=== PATIENT | male | born 1955 | race African-American/Black ===

== ENCOUNTER 2019-01-04 14:57 | Emergency (ER) | payer MEDICARE ==
[~2019-01-04] VITALS: Ht 170.2 cm; Wt 122.5 kg
[2019-01-04 15:43] LABS: BASO % 0 % (0-3); EOS % 0 % (0-3); HEMOGLOBIN 12.5 g/dL (13.0-17.5); LYMPH # 1.6 x10^3/uL (1.0-4.8); LYMPH % 24 % (24-48); MEAN CORPUSCULAR HEMOGLOBIN 31 pg (25-35); MEAN CORPUSCULAR HGB CONC 33 g/dL (31-37); MEAN CORPUSCULAR VOLUME 94 fL (79-100); MONO % 14 % (0-9); NEUT # 4.3 x10^3uL (1.8-7.7); NEUT % 62 % (31-73); PLATELET COUNT 197 x10^3/uL (140-400); RED BLOOD COUNT 4.05 x10^6/uL (4.30-5.70); RED CELL DISTRIBUTION WIDTH 13.9 % (11.5-14.5); WHITE BLOOD COUNT 6.9 x10^3/uL (4.0-11.0)
[2019-01-04 15:46] LABS: BILIRUBIN,URINE NEGATIVE (NEG); CLARITY,URINE CLEAR; COLOR,URINE YELLOW; NITRITE,URINE NEGATIVE (NEG); PROTEIN,URINE NEGATIVE (NEG-TRACE); UROBILINOGEN,URINE 0.2 mg/dL (0.2 mg/dL)
[2019-01-04 15:52] LABS: CALCIUM 8.9 mg/dL (8.5-10.1); CREATININE 1.2 mg/dL (0.7-1.3); GFR 73.8; POTASSIUM 4.2 mmol/L (3.5-5.1)
[2019-01-04 15:56] LABS: BACTERIA,URINE 0 /HPF (0-FEW); RBC,URINE 0 /HPF (0-2); SQUAMOUS EPITHELIAL CELL,UR FEW /LPF; WBC,URINE 0 /HPF (0-4)
[2019-01-04 15:57] LABS: ALBUMIN 2.7 g/dL (3.4-5.0); ALBUMIN/GLOBULIN RATIO 0.5 (1.0-1.7); TOTAL BILIRUBIN 0.4 mg/dL (0.2-1.0); TOTAL PROTEIN 7.8 g/dL (6.4-8.2)
--- NOTE | 2019-01-04 16:42 | RAD ---
Testicular ultrasound History: Right testicular swelling. Cardiac catheterization November 2018. Comparison: None. Technique: Multiple grayscale, color flow Doppler and Doppler spectral analysis images of the scrotum are obtained. Findings: Right testicle measures 4 x 2.1 x 2.2 cm. Right testicle demonstrates normal parenchymal echogenicity. The right epididymis head contains a complex cyst with a fluid fluid level measuring up to 1.3 cm. Appendix epididymis is incidentally noted. There is a moderate sized right hydrocele. Left testicle measures 3.2 x 1.8 x 2.6 cm. Left testicle demonstrates normal parenchymal echogenicity. A 4 mm scrotal satish is noted inferiorly. There is moderate left hydrocele. The left epididymis is similar in size to the contralateral epididymis. Incidental appendix epididymis is noted. No varicocele is identified. Scrotal hyperemia or swelling are not seen. Doppler imaging demonstrates normal flow to both testicles, without evidence of torsion. IMPRESSION: 1. No evidence of testicular mass or torsion. 2. Moderate sized bilateral hydroceles. 3. Right epididymal head cyst or spermatocele contains a fluid/fluid level. 4. The epididymides are symmetric in size and do not demonstrate hyperemia. Electronically signed by: Nathan Macias MD (01/04/2019 4:39 PM) [id number]
--- NOTE | 2019-01-04 16:50 | PHYS DOC ---
Past Medical History Past Medical History: Asthma, CHF, Diabetes-Type II, Hypertension, [place] Past Surgical History: Hip Replacement, Knee Replacement Alcohol Use: None Drug Use: None Adult General Chief Complaint Chief Complaint: TESTICULAR PAIN OR INJURY [facility] HPI Patient is a 63 year old male who presents with a swelling in his testicle x 1 month. He states that he had a cardiac cath in November and has noticed the swe lling since around that time. He has not followed up with cardiology for this problem. Review of Systems Review of Systems Constitutional: Denies fever or chills [] Respiratory: Denies cough or shortness of breath [] Cardiovascular: No additional information not addressed in HPI [] GI: Denies abdominal pain, nausea, vomiting, bloody stools or diarrhea [] : See HPI Musculoskeletal: Denies back pain or joint pain [] Integument: Denies rash or skin lesions [] Neurologic: Denies headache, focal weakness or sensory changes [] Endocrine: Denies polyuria or polydipsia [] All other systems were reviewed and found to be within normal limits, except as documented in this note. Allergies Allergies Allergies Coded Allergies Type Severity Reaction Last Updated Verified No Known Drug Allergies 01/04/19 No Physical Exam Physical Exam Constitutional: Well developed, well nourished, no acute distress, non-toxic appearance. [] Cardiovascular:Heart rate regular rhythm, no murmur [] Lungs & Thorax: Bilateral breath sounds clear to auscultation [] Abdomen: Bowel sounds normal, soft, no tenderness, no masses, no pulsatile masses. [] Groin: Lump noticed to testical, mobile, firm with no ecchymosis or pain, no sign of a pseudo-aneurism noted to femoral site Skin: Warm, dry, no erythema, no rash. [] Back: No tenderness, no CVA tenderness. [] Extremities: No tenderness, no cyanosis, no clubbing, ROM intact, no edema. [] Neurologic: Alert and oriented X 3, normal motor function, normal sensory function, no focal deficits noted. [] Psychologic: Affect normal, judgement normal, mood normal. [] Current Patient Data Vital Signs Lab Values Laboratory Tests Test 01/04/19 15:00 01/04/19 15:26 Urine Collection Type Unknown Urine Color Yellow Urine Clarity Clear Urine pH 6.0 Urine Specific [place] 1.020 Urine Protein Negative mg/dL (NEG-TRACE) Urine Glucose (UA) Negative mg/dL (NEG) Urine Ketones (Stick) Negative mg/dL (NEG) Urine Blood Negative (NEG) Urine Nitrite Negative (NEG) Urine Bilirubin Negative (NEG) Urine Urobilinogen Dipstick 0.2 mg/dL (0.2 mg/dL) Urine Leukocyte Esterase Negative (NEG) Urine RBC 0 /HPF (0-2) Urine WBC 0 /HPF (0-4) Urine Squamous Epithelial Cells Few /LPF Urine Bacteria 0 /HPF (0-FEW) Urine Mucus Marked /LPF White Blood Count 6.9 x10^3/uL (4.0-11.0) Red Blood Count 4.05 x10^6/uL (4.30-5.70) L Hemoglobin 12.5 g/dL (13.0-17.5) L Hematocrit 38.0 % (39.0-53.0) L Mean Corpuscular Volume 94 fL (79-100) Mean Corpuscular Hemoglobin 31 pg (25-35) Mean Corpuscular Hemoglobin Concent 33 g/dL (31-37) Red Cell Distribution Width 13.9 % (11.5-14.5) Platelet Count 197 x10^3/uL (140-400) Neutrophils (%) (Auto) 62 % (31-73) Lymphocytes (%) (Auto) 24 % (24-48) Monocytes (%) (Auto) 14 % (0-9) H Eosinophils (%) (Auto) 0 % (0-3) Basophils (%) (Auto) 0 % (0-3) Neutrophils # (Auto) 4.3 x10^3uL (1.8-7.7) Lymphocytes # (Auto) 1.6 x10^3/uL (1.0-4.8) Monocytes # (Auto) 1.0 x10^3/uL (0.0-1.1) Eosinophils # (Auto) 0.0 x10^3/uL (0.0-0.7) Basophils # (Auto) 0.0 x10^3/uL (0.0-0.2) Sodium Level 144 mmol/L (136-145) Potassium Level 4.2 mmol/L (3.5-5.1) Chloride Level 106 mmol/L (98-107) Carbon Dioxide Level 30 mmol/L (21-32) Anion Gap 8 (6-14) Blood Urea Nitrogen 19 mg/dL (8-26) Creatinine 1.2 mg/dL (0.7-1.3) Estimated GFR (Cockcroft-Gault) 73.8 BUN/Creatinine Ratio 16 (6-20) Glucose Level 99 mg/dL (70-99) Calcium Level 8.9 mg/dL (8.5-10.1) Total Bilirubin 0.4 mg/dL (0.2-1.0) Aspartate Amino Transferase (AST) 21 U/L (15-37) Alanine Aminotransferase (ALT) 25 U/L (16-63) Alkaline Phosphatase 103 U/L (46-116) Total Protein 7.8 g/dL (6.4-8.2) Albumin 2.7 g/dL (3.4-5.0) L Albumin/Globulin Ratio 0.5 (1.0-1.7) L Laboratory Tests 01/04/19 15:26 Laboratory Tests 01/04/19 15:26 EKG EKG [] Radiology/Procedures Radiology/Procedures []PATIENT: VICENTE MAGDALENO AACCOUNT: [id number]#: [id number] : 1955 LOCATION: ER AGE: 63 SEX: M EXAM STATUS: REG ER ORD. PHYSICIAN: BRADLEY RING APRN REASON: right scrotal swelling, cardiac cath nov 2018 PROCEDURE: TESTICULAR/SCROTUM Testicular ultrasound History: Right testicular swelling. Cardiac catheterization November 2018. Comparison: None. Technique: Multiple grayscale, color flow Doppler and Doppler spectral analysis images of the scrotum are obtained. Findings: Right testicle measures 4 x 2.1 x 2.2 cm. Right testicle demonstrates normal parenchymal echogenicity. The right epididymis head contains a complex cyst with a fluid fluid level measuring up to 1.3 cm. Appendix epididymis is incidentally noted. There is a moderate sized right hydrocele. Left testicle measures 3.2 x 1.8 x 2.6 cm. Left testicle demonstrates normal parenchymal echogenicity. A 4 mm scrotal satish is noted inferiorly. There is moderate left hydrocele. The left epididymis is similar in size to the contralateral epididymis. Incidental appendix epididymis is noted. No varicocele is identified. Scrotal hyperemia or swelling are not seen. Doppler imaging demonstrates normal flow to both testicles, without evidence of torsion. IMPRESSION: 1. No evidence of testicular mass or torsion. 2. Moderate sized bilateral hydroceles. 3. Right epididymal head cyst or spermatocele contains a fluid/fluid level. 4. The epididymides are symmetric in size and do not demonstrate hyperemia. Electronically signed by: Nathan Macias MD (01/04/2019 4:39 PM) [id number] DICTATED and SIGNED BY: NATHAN MACIAS MD DATE: 01/04/19 1633 Course & Med Decision Making Course & Med Decision Making Pertinent Labs and Imaging studies reviewed. (See chart for details) [] Dragon Disclaimer Dragon Disclaimer This electronic medical record was generated, in whole or in part, using a voice recognition dictation system. Departure Departure Impression: Primary Impression: Hydrocele in adult Additional Impression: Epididymal cyst Disposition: 01 HOME, SELF-CARE Condition: STABLE Referrals: NATHAN HO MD (PCP) JOSEMANUEL MERCADO MD Additional Instructions: Follow-up with urology for more investigation into your hydroceles and your epididymal cyst. You may take ibuprofen or Tylenol for pain as needed. Problem Qualifiers BRADLEY RING APRN Jan 04, 2019 16:50
[2019-01-04 17:00] VITALS: BP 132/77
== END 2019-01-04 17:27 | disposition home or self-care (01) ==
LOC: ER 14:57
DX: N50.3 Cyst of epididymis (principal); N43.3 Hydrocele, unspecified; I11.0 Hypertensive heart disease with heart failure; I50.9 Heart failure, unspecified; J45.909 Unspecified asthma, uncomplicated; E11.9 Type 2 diabetes mellitus without complications; I25.2 Old myocardial infarction
CPT/HCPCS: 36415; 76870; 80053; 81001; 85025; 99284-25

== ENCOUNTER 2019-05-10 19:50 | Emergency (ER) | payer MEDICARE ==
[~2019-05-10] VITALS: Ht 167.6 cm; Wt 125.2 kg
[2019-05-10 20:18] LABS: BASO % 0 % (0-3); EOS % 0 % (0-3); HEMATOCRIT 39.5 % (39.0-53.0); HEMOGLOBIN 12.9 g/dL (13.0-17.5); LYMPH # 1.9 x10^3/uL (1.0-4.8); LYMPH % 32 % (24-48); MEAN CORPUSCULAR HEMOGLOBIN 30 pg (25-35); MEAN CORPUSCULAR HGB CONC 33 g/dL (31-37); MEAN CORPUSCULAR VOLUME 92 fL (79-100); MONO # 0.8 x10^3/uL (0.0-1.1); MONO % 14 % (0-9); NEUT # 3.2 x10^3uL (1.8-7.7); NEUT % 55 % (31-73); PLATELET COUNT 179 x10^3/uL (140-400); RED BLOOD COUNT 4.28 x10^6/uL (4.30-5.70); RED CELL DISTRIBUTION WIDTH 13.5 % (11.5-14.5); WHITE BLOOD COUNT 5.9 x10^3/uL (4.0-11.0)
[2019-05-10 20:31] LABS: CALCIUM 8.8 mg/dL (8.5-10.1); CREATININE 1.1 mg/dL (0.7-1.3); GFR 81.3; POTASSIUM 3.6 mmol/L (3.5-5.1)
[2019-05-10 20:36] LABS: ALBUMIN 3.1 g/dL (3.4-5.0); ALBUMIN/GLOBULIN RATIO 0.7 (1.0-1.7); TOTAL BILIRUBIN 0.4 mg/dL (0.2-1.0); TOTAL PROTEIN 7.4 g/dL (6.4-8.2)
--- NOTE | 2019-05-10 20:38 | PHYS DOC ---
Past Medical History Past Medical History: Asthma, CHF, Diabetes-Type II, Hypertension, [place] Past Surgical History: Hip Replacement, Knee Replacement Alcohol Use: None Drug Use: None Adult General Chief Complaint Chief Complaint: RAPID HEART RATE HPI HPI Patient is a 64 year old -[place] male with history of hypertension, CAD, CHF, asthma who presents with palpitations. Symptoms been intermittent since this afternoon. Patient reports pounding heartbeat or skipped beats every few minutes. Patient states symptoms are associated with lightheadedness. Patient denies chest pain, chest tightness, shortness of breath nausea or sweats. Patient noted to be hypertensive with a systolic reading greater than 200 and diastolic reading greater than 100. 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 He is normally compliant with his medications but forgot to take a blood pressure pill earlier this afternoon prior to symptom onset. Reports recent heart catheterization in the past few months at home on [facility]. States he had angioplasty performed without stent placement. Patient denies anginal symptoms since that time. No other acute symptoms or complaints.[] Review of Systems Review of Systems Review symptoms as per history of present illness. All other review symptoms are negative. All other systems were reviewed and found to be within normal limits, except as documented in this note. Current Medications Current Medications Current Medications Medications (Trade) Dose Ordered Sig/Bela Start Time Stop Time Status Last Admin Dose Admin Clonidine HCl (Catapres) 0.2 mg 1X ONCE 05/10/19 21:00 05/10/19 21:01 DC 05/10/19 20:52 0.2 MG Allergies Allergies Allergies Coded Allergies Type Severity Reaction Last Updated Verified No Known Drug Allergies 01/04/19 No Physical Exam Physical Exam Constitutional: Well developed, well nourished, no acute distress, non-toxic appearance. [] HENT: Normocephalic, atraumatic, bilateral external ears normal, oropharynx moist, no oral exudates, nose normal. [] Eyes: PERRLA, EOMI, conjunctiva normal, no discharge. [] Neck: Normal range of motion, no tenderness, supple, no stridor. [] Cardiovascular:Heart rate regular rhythm, no murmur [] Lungs & Thorax: Bilateral breath sounds clear to auscultation [] Abdomen: Bowel sounds normal, soft, no tenderness. [] Skin: Warm, dry, no erythema, no rash. [] Back: No tenderness, no CVA tenderness. [] Extremities: No tenderness, no cyanosis, no clubbing, ROM intact, no edema. [] Neurologic: Alert and oriented X 3, normal motor function, normal sensory function, no focal deficits noted. [] Psychologic: Affect normal, judgement normal, mood normal. [] Current Patient Data Vital Signs Vital Signs Date Time Temp Pulse Resp B/P (MAP) Pulse Ox O2 Delivery O2 Flow Rate FiO2 05/10/19 20:55 76 172/97 (122) 95 Room Air 2.0 05/10/19 20:45 15 05/10/19 19:54 98.2 98.2 Lab Values Laboratory Tests Test 05/10/19 20:06 White Blood Count 5.9 x10^3/uL (4.0-11.0) Red Blood Count 4.28 x10^6/uL (4.30-5.70) L Hemoglobin 12.9 g/dL (13.0-17.5) L Hematocrit 39.5 % (39.0-53.0) Mean Corpuscular Volume 92 fL (79-100) Mean Corpuscular Hemoglobin 30 pg (25-35) Mean Corpuscular Hemoglobin Concent 33 g/dL (31-37) Red Cell Distribution Width 13.5 % (11.5-14.5) Platelet Count 179 x10^3/uL (140-400) Neutrophils (%) (Auto) 55 % (31-73) Lymphocytes (%) (Auto) 32 % (24-48) Monocytes (%) (Auto) 14 % (0-9) H Eosinophils (%) (Auto) 0 % (0-3) Basophils (%) (Auto) 0 % (0-3) Neutrophils # (Auto) 3.2 x10^3uL (1.8-7.7) Lymphocytes # (Auto) 1.9 x10^3/uL (1.0-4.8) Monocytes # (Auto) 0.8 x10^3/uL (0.0-1.1) Eosinophils # (Auto) 0.0 x10^3/uL (0.0-0.7) Basophils # (Auto) 0.0 x10^3/uL (0.0-0.2) Sodium Level 141 mmol/L (136-145) Potassium Level 3.6 mmol/L (3.5-5.1) Chloride Level 104 mmol/L (98-107) Carbon Dioxide Level 28 mmol/L (21-32) Anion Gap 9 (6-14) Blood Urea Nitrogen 15 mg/dL (8-26) Creatinine 1.1 mg/dL (0.7-1.3) Estimated GFR (Cockcroft-Gault) 81.3 BUN/Creatinine Ratio 14 (6-20) Glucose Level 101 mg/dL (70-99) H Calcium Level 8.8 mg/dL (8.5-10.1) Total Bilirubin 0.4 mg/dL (0.2-1.0) Aspartate Amino Transferase (AST) 19 U/L (15-37) Alanine Aminotransferase (ALT) 20 U/L (16-63) Alkaline Phosphatase 112 U/L (46-116) Troponin I Quantitative 0.033 ng/mL (0.000-0.055) Total Protein 7.4 g/dL (6.4-8.2) Albumin 3.1 g/dL (3.4-5.0) L Albumin/Globulin Ratio 0.7 (1.0-1.7) L Thyroid Stimulating Hormone (TSH) 1.319 uIU/mL (0.358-3.74) Laboratory Tests 05/10/19 20:06 Laboratory Tests 05/10/19 20:06 EKG EKG [EKG: Sinus rhythm rate 86, occasional PVC, right bundle branch block, no acute ST-T wave changes.] Radiology/Procedures Radiology/Procedures CXR: []No obvious acute pulmonary disease Course & Med Decision Making Course & Med Decision Making Pertinent Labs and Imaging studies reviewed. (See chart for details) [Symptoms improved with treatment. Patient asymptomatic. Patient's O2 sats duration and lower 90s at rest. States he he has sleep apnea and is waiting as CPAP machine. Patient instructed to take home blood pressure medication upon returning home and to follow-up with PCP. Return precautions reviewed.] Dragon Disclaimer Dragon Disclaimer This electronic medical record was generated, in whole or in part, using a voice recognition dictation system. Departure Departure Impression: Primary Impression: Palpitations Referrals: EMANUEL HO MD (PCP) LANE FORBES DO May 10, 2019 20:38
[2019-05-10] MEDS ORDERED: cloNIDine HCL 0.1 MG TABLET PO ONE (21:00)
[2019-05-10 22:00] VITALS: BP 160/104
--- NOTE | 2019-05-10 23:08 | RAD ---
AP portable chest radiograph 05/10/2019 Clinical History: Chest pain since earlier today. An AP erect portable digital radiograph of the chest was obtained. Comparison study is dated 06/01/2012. The cardiac silhouette is mildly enlarged. The thoracic aorta is tortuous. No acute pulmonary infiltrate is seen. No pleural effusion or pneumothorax is noted. Degenerative changes are seen involving the thoracic spine. Impression: No acute abnormality is seen. Electronically signed by: Finn Anders MD (05/10/2019 11:05 PM) [facility]
--- NOTE | 2019-05-11 15:32 | EKG ---
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
== END 2019-05-10 22:17 | disposition home or self-care (01) ==
LOC: ER 19:50
DX: R00.2 Palpitations (principal); I11.0 Hypertensive heart disease with heart failure; I50.9 Heart failure, unspecified; E11.9 Type 2 diabetes mellitus without complications; J45.909 Unspecified asthma, uncomplicated; I25.2 Old myocardial infarction; I25.10 Atherosclerotic heart disease of native coronary artery without angina pectoris
CPT/HCPCS: 36415; 71045; 80053; 84443; 84484; 85025; 93005; 99285-25

== ENCOUNTER → 2021-03-25 | Outpatient (CLI) | payer MEDICARE ==
[~2021-03-25] MED LIST: AMIT10TA PO; ATOR40TA59 PO; CARV25TA2 PO; CLOP75TA PO; GABA300C18 PO; HYDR25TA PO; ISOS30TA68 PO; LOSA100T14 PO; MV-M1TAB7 PO; NITR0.4T22 SL; PERFLUTREN PROTEIN-A MICROSPHR 0.22 MG/ML 3 ML VIAL. IV ONE; POTA20PA30 PO; SPIR25TA5 PO; TAMS0.4C97 PO; TORS10TA3 PO; TRAM50TA PO
--- NOTE | 2021-03-25 15:10 | CARD ---
MR#: [id number] Date of Study: 03/25/2021 Ordering Physician: BLANCA ROSENBERG, Referring Physician: BLANCA ROSENBERG, Tech: Jannie Vasques [facility] APPROVED REPORT EXAM: Two-dimensional and M-mode echocardiogram with Doppler and color Doppler. Other Information Quality : Technically LimitedHR: 83bpm Rhythm : NSR INDICATION Hypertension/HCVD Chest Pain Echo Enhancing Agent Indication: Endocardial border delineation Agent/Amount Used: Optison 3mL RISK FACTORS Hypertension Obesity Hyperlipidemia 2D DIMENSIONS RVDd3.6 (2.9-3.5cm)Left Atrium(2D)4.9 (1.6-4.0cm) IVSd1.1 (0.7-1.1cm)Aortic Root(2D)3.9 (2.0-3.7cm) LVDd7.1 (3.9-5.9cm)LVOT Diameter2.4 (1.8-2.4cm) PWd0.7 (0.7-1.1cm)IVSs1.5 (0.8-1.2cm) LVDs6.6 (2.5-4.0cm)FS (%) 6.8 % PWs0.8 (0.8-1.2cm)SV38.7 ml LVEF(%)14.8 (>50%) Aortic Valve AoV Peak Maulik.111.6cm/sAoV VTI24.1cm AO Peak GR.5.0mmHgLVOT Peak Amulik.75.3cm/s LVOT VTI 16.92cmAO Mean GR.3mmHg SANDRA (VMAX)1.52kc9BQK (VTI)3.24cm2 Pulmonary Vein S1 Hhphxkqe11.6cm/sD2 Drkhdheo78.6cm/s PVa [id number] LEFT VENTRICLE The Left Ventricle is moderately dilated. Asymetric septal hypertrophy. The left ventricular systolic function is moderately to severely impaired. Estimated ejection fraction 25-30% There is global hyp okinesis of the left ventricle. RIGHT VENTRICLE The right ventricle is normal size. There is normal right ventricular wall thickness. The right ventr icular systolic function is normal. ATRIA The left atrium is moderately dilated. The right atrium is borderline dilated. The interatrial septum is intact with no evidence for an atrial septal defect or patent foramen ovale as noted on 2-D or Do ppler imaging. AORTIC VALVE The aortic valve is normal in structure and function. Doppler and Color Flow revealed mild aortic reg urgitation. There is no significant aortic valvular stenosis. MITRAL VALVE The mitral valve is normal in structure and function. There is no evidence of mitral valve prolapse. There is no mitral valve stenosis. Doppler and Color-flow revealed mild to moderate mitral regurgitat ion. TRICUSPID VALVE The tricuspid valve is normal in structure and function. Doppler and Color Flow revealed trace tricus pid valve regurgitation. There is no tricuspid valve stenosis. PULMONIC VALVE The pulmonary valve is normal in structure and function. Doppler and Color Flow revealed no pulmonic valvular regurgitation. GREAT VESSELS The aortic root is mildly enlarged. The ascending aorta is Mildly dilated. The IVC is normal in size and collapses >50% with inspiration. PERICARDIAL EFFUSION There is no evidence of significant pericardial effusion. Critical Notification Critical Value: No <Conclusion> The left ventricular systolic function is moderately to severely impaired. Estimated ejection fraction 25-30% Mild aortic regurgitation. Mild to moderate mitral regurgitation. Doppler and Color Flow revealed trace tricuspid valve regurgitation. There is no evidence of significant pericardial effusion. Signed by : Femi Leroy, Electronically Approved : 03/25/2021 15:10:18
== END ==
LOC: ECHO 08:50 → EDBD 10:00
PROVIDERS: ATTEND Internal Medicine Cardiovascular Disease
DX: I08.0 Rheumatic disorders of both mitral and aortic valves (principal); I42.9 Cardiomyopathy, unspecified
CPT/HCPCS: C8929; Q9956

== ENCOUNTER 2021-04-15 08:36 | Observation (INO) | payer MEDICARE ==
[~2021-04-15] VITALS: Ht 170.2 cm; Wt 137.8 kg
[~2021-04-15 08:36] MED LIST changes: +HYDROmorphone 2 MG/ML VIAL IVP PRN; +IV RINGERS,LACTATED 1000ML 1,000 ML IV SCH; +MORPHINE SULFATE 2 MG/ML VIAL. IVP PRN; -PERFLUTREN PROTEIN-A MICROSPHR 0.22 MG/ML 3 ML VIAL. IV ONE; +PROCHLORPERAZINE 10 MG/2 ML VIAL. IVP PRN; +fentaNYL PF VIAL 100 MCG/2 ML VIAL IVP PRN
[2021-04-15 09:10] LABS: HEMATOCRIT 41.4 % (39.0-53.0); HEMOGLOBIN 13.7 g/dL (13.0-17.5); RED BLOOD COUNT 4.44 x10^6/uL (4.30-5.70); RED CELL DISTRIBUTION WIDTH 13.4 % (11.5-14.5); WHITE BLOOD COUNT 4.8 x10^3/uL (4.0-11.0)
--- NOTE | 2021-04-15 09:18 | EKG ---
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 : 1955 Requested By: ENDY WHITT Order Number: [id number] Reading MD: Measurements Intervals [place] Rate: 71 P: 40 PA: 218 QRS: 265 QRSD: 142 T: 66 QT: 454 QTc: 499 Interpretive Statements SINUS RHYTHM VENTRICULAR PREMATURE COMPLEX(ES) ABNORMAL RIGHT SUPERIOR AXIS DEVIATION NON SPECIFIC INTRAVENTRICULAR BLOCK CONSIDER RIGHT VENTRICULAR HYPERTROPHY QRS(T) CONTOUR ABNORMALITY CONSISTENT WITH INFERIOR INFARCT PROBABLY OLD ABNORMAL ECG RI6.02 Compared to ECG 05/10/2019 19:56:13 Right superior axis now present Left-axis deviation no longer present Right bundle-branch block no longer present Myocardial infarct finding still present
[2021-04-15 09:24] VITALS: BP 121/67
[2021-04-15] MEDS ORDERED: LIDOCAINE 2%/EPI 1:100,000 20 ML VIAL. ONE (09:26)
[2021-04-15] MEDS ORDERED: IODIXANOL 320 MG/ML 100 ML VIAL. ONE ×2 (09:27→11:03)
[2021-04-15 09:30] LABS: PROTHROMBIN TIME PATIENT 13.1 SEC (11.7-14.0)
[2021-04-15 09:38] LABS: CALCIUM 8.6 mg/dL (8.5-10.1); CREATININE 1.2 mg/dL (0.7-1.3); GFR 73.1; POTASSIUM 4.3 mmol/L (3.5-5.1)
[2021-04-15] MEDS ORDERED: ceFAZolin SODIUM 1 GM in IV NORMAL SALINE 100ML 100 ML IRR ONE (10:00)
[2021-04-15] MEDS ORDERED: LIDOCAINE 2%/EPI 1:100,000 20 ML VIAL. IJ ONE (10:30)
[2021-04-15] MEDS ORDERED: IODIXANOL 320 MG/ML 100 ML VIAL. IART ONE (10:30)
[2021-04-15 12:16] VITALS: BP 109/72
--- NOTE | 2021-04-15 13:35 | RAD ---
EXAM: Chest, single view. HISTORY: Pacemaker. COMPARISON: 05/10/2019 FINDINGS: A frontal view of the chest is obtained. There is a left cardiac pacemaker defibrillator wi th leads overlying expected position. There is no pneumothorax. There are decreased lung volumes and there is diffuse increased interstitial opacity due to vascular crowding and atelectasis. There is bi lateral hilar prominence, likely accentuated due to decreased lung volumes and prominent pulmonary va scular shadows. There is a stable prominent cardiac silhouette. IMPRESSION: 1. Left cardiac pacemaker defibrillator overlying expected position. There is no pneumothorax. 2. Decreased lung volumes with associated vascular crowding and atelectasis. Electronically signed by: Luzma Mcghee MD (04/15/2021 1:32 PM) [id number]
--- NOTE | 2021-04-15 13:43 | CARD ---
MR#: [id number] Date of Study: 04/15/2021 Ordering Physician: ENDY LEROY, Referring Physician: ENDY LEROY, Tech: APPROVED REPORT EXAM 1. Implantation of Biotronik biventricular implantable cardioverter defibrillator/cardiac resynchron ization therapy-defibrillator (BiVICD/REFRIGERATION HOUSEMAN-D) 2. Defibrillation thresholds measurement at the time of implantation SEDATION ADMINISTERED BY ANESTHESIA FLUORO TIME: 27.1 MINUTES DOSE: 493 GYCM2 CONTRAST: 100CC VISI INDICATIONS Primary prevention of sudden cardiac and cardiac resynchronization therapy in a patient with se shona ischemic cardiomyopathy, chronic systolic heart failure with LVEF 25% despite optimal medical th erapy and prolonged QRS interval of 156 ms. IMPLANTED DEVICES After explaining the risk, benefits and alternative options, informed consent was obtained from patie nt. Patient was brought to the cardiac Materials Planning Analyst and his left chest and shoulder were prepped and lila ped in the usual fashion. 30 cc of 2% lidocaine was infiltrated into the skin and subcutaneous tissu es for local anesthesia. An incision was made over the left infraclavicular fossa and using blunt di ssection and cautery a pocket was created. Venous access was obtained in the left subclavian vein an d 9 Guamanian sheath was inserted. Contrast injections were performed within the right atrium using MIKE-2 2 catheter to identify the c oronary sinus ostium. This was engaged with the CASS2 atheter and the 9 Guamanian CS sheath advanced ov er a 0.035 inch angled Glidewire.. Coronary sinus venogram was obtained to identify the appropriate vein for placement of left ventricular lead. The middle cardiac vein was selectively engaged with a 4 [place]ian angled glide catheter and a 0.014 inch grand slam guidewire was advanced. A Biotronik quadr ipolar left ventricular lead model Sentus ProMRI OTW/QP L-85, serial #[id number] was advanced over the wire and positioned in the most distal portion of the middle cardiac vein and optimal parameters conf irmed. Venous access was again obtained in the left subclavian vein and 10.5 and 6 Guamanian sheaths inserted. A Biotronik bipolar active fixation right ventricular lead model Plexa ProMRI, serial #[id number] was advanced under fluoroscopy guidance and the tip was positioned in the right ventricular apex. Subseq uently, a Biotronik bipolar active fixation right atrial lead model Solia, serial #[id number] was adv anced under fluoroscopic guidance and the tip was positioned in the right atrial appendage. The lead s were secured into place and were attached to a Biotronik biventricular ICD/REFRIGERATION HOUSEMAN-D generator model Ri vacor 7 HF-T QP, serial #[id number]. This was placed in the pocket that was subsequently closed in 3 l rojo. Hemostasis was secured with the help of D-Stat. Ventricular fibrillation was then induced to check the defibrillation threshold. Patient successfull y converted to sinus rhythm with a 15 J shock therapy with a shock impedance of 60 ohms. The right v entricular lead showed a sensing amplitude of 14.5 mV, impedance of 778 ohms and a threshold of 0.5 V . The left ventricular lead showed a sensing amplitude of 16 mV, impedance of 860 ohms and a thresho ld of 0.8 V. The right atrial lead showed a sensing amplitude of 4.5 mV, impedance of 480 ohms and a threshold of 1.2 V. Patient tolerated the procedure well. There were no immediate complications. Estimated blood loss 20 mL. Specimen removed: None CONCLUSION Successful implantation of Biotronik biventricular ICD/REFRIGERATION HOUSEMAN-D for primary prevention of sudden cardiac and cardiac resynchronization therapy in a patient with severe ischemic cardiomyopathy, chroni c systolic heart failure with EF 25% and prolonged QRS interval of 156 ms. Defibrillation thresholds were measured successfully at the time of implantation. Signed by : Endy Leroy, Electronically Approved : 04/15/2021 13:43:20
[2021-04-15] MEDS ORDERED: fentaNYL PF VIAL 250 MCG/5 ML VIAL ONE (14:03)
[2021-04-15] MEDS ORDERED: MIDAZOLAM HCL/PF 2 MG/2 ML VIAL. ONE (14:03)
[2021-04-15] MEDS ORDERED: KETAMINE HCL IN NACL, ISO-OSM 50 MG/5 ML SYRINGE ONE (14:04)
[2021-04-15 16:20] VITALS: BP 114/62
--- NOTE | 2021-04-15 16:30 | NUR ---
The patient, VICENTE MAGDALENO, 66 y/o, M admitted by ENDY WHITT MD, was given written information regarding hospital policies, unit procedures and contact persons. Valuables were checked and left at bedside with patient. Patients has cell phone and will bring it up before end of visiting hours. Patients dressing to left upper chest had small amount of shadow/drainage and very little tenderness. Advised patient to press call light for assistance out of bed to prevent falls.
[2021-04-15] MEDS ORDERED: traMADol 50 MG TABLET PO PRN (17:15)
[2021-04-15] MEDS ORDERED: NITROGLYCERIN SUBLINGUAL 0.4 MG BOTTLE OF 25. SL PRN (17:15)
[2021-04-15] MEDS: CARVEDILOL 12.5 MG TABLET. PO SCH (17:28)
[2021-04-15 19:41] VITALS: BP 129/69
[2021-04-15] MEDS: hydrOXYzine 25 MG TABLET PO SCH (20:38)
[2021-04-15] MEDS: GABAPENTIN 300 MG CAPSULE. PO SCH (20:38)
[2021-04-15 22:21] VITALS: BP 125/64
[2021-04-16] MEDS: oxyCODONE/APAP 5/325 1 TAB TABLET PO PRN ×3 (00:59→14:52)
[2021-04-16 03:00] VITALS: BP 119/67
[2021-04-16 07:00] VITALS: BP 147/69
[2021-04-16] MEDS ORDERED: POTASSIUM CHLORIDE 20 MEQ TABLET.ER. PO SCH (08:00)
[2021-04-16] MEDS ORDERED: LOSARTAN POTASSIUM 50 MG TABLET. PO SCH (09:00)
[2021-04-16] MEDS: SPIRONOLACTONE 25 MG TABLET PO SCH (09:00)
[2021-04-16] MEDS: GABAPENTIN 300 MG CAPSULE. PO SCH ×2 (09:00→14:52)
[2021-04-16] MEDS ORDERED: CLOPIDOGREL BISULFATE 75 MG TABLET PO SCH (09:00)
[2021-04-16] MEDS ORDERED: AMITRIPTYLINE HCL 10 MG TABLET. PO SCH (09:00)
[2021-04-16] MEDS ORDERED: ISOSORBIDE MONONITRATE ER 30 MG TAB.ER.24H PO SCH (09:00)
[2021-04-16] MEDS ORDERED: ATORVASTATIN CALCIUM 40 MG TABLET. PO SCH (09:00)
[2021-04-16] MEDS ORDERED: TAMSULOSIN 0.4 MG CAP.ER.24H. PO SCH (09:00)
--- NOTE | 2021-04-16 09:00 | NUR ---
PT A&O X 4. PT SAYS SWITCHMAN SAID NOT TO TAKE HIS "WATER PILL" THIS MORNING. SPIRONOLACTONE HELD.
[2021-04-16] MEDS: CARVEDILOL 12.5 MG TABLET. PO SCH (09:01)
--- NOTE | 2021-04-16 09:01 | RAD ---
EXAM: Chest, 2 views. HISTORY: Pacemaker. COMPARISON: 04/15/2021 FINDINGS: 2 views of the chest are obtained. There is no infiltrate, pleural effusion or pneumothorax . There is stable cardiomegaly and enlargement of the central pulmonary arteries. There is a cardiac pacemaker defibrillator with leads overlying expected position. IMPRESSION: Cardiac pacemaker defibrillator overlying expected position. Electronically signed by: Luzma Mcghee MD (04/16/2021 8:59 AM) [id number]
[2021-04-16] MEDS: hydrOXYzine 25 MG TABLET PO SCH ×2 (09:02→14:52)
[2021-04-16 11:00] VITALS: BP 103/55
--- NOTE | 2021-04-16 12:35 | PDOC3 ---
ZOHRA AMBROSIO HOG RIBBER 04/16/21 1235: Discharge Summary Visit Information Date of Admission: Apr 15, 2021 Date of Discharge: Apr 16, 2021 Admitting Diagnosis: Chronic systolic CHF, ICM with EF at 25%, CAD, HTN Final Diagnosis S?P CIVIL PREPAREDNESS COORDINATOR-D, Chronic systolic CHF, ICM with EF at 25%, CAD, HTN Brief Hospital Course Allergies Allergies Coded Allergies Type Severity Reaction Last Updated Verified No Known Drug Allergies 01/04/19 No Vital Signs Vital Signs Date Time Temp Pulse Resp B/P (MAP) Pulse Ox O2 Delivery O2 Flow Rate FiO2 04/16/21 11:00 97.9 95 17 103/55 (71) 94 Room Air 97.9 04/16/21 01:29 2.0 Lab Results Laboratory Tests Test 04/15/21 09:05 White Blood Count 4.8 x10^3/uL (4.0-11.0) Red Blood Count 4.44 x10^6/uL (4.30-5.70) Hemoglobin 13.7 g/dL (13.0-17.5) Hematocrit 41.4 % (39.0-53.0) Mean Corpuscular Volume 93 fL (79-100) Mean Corpuscular Hemoglobin 31 pg (25-35) Mean Corpuscular Hemoglobin Concent 33 g/dL (31-37) Red Cell Distribution Width 13.4 % (11.5-14.5) Platelet Count 171 x10^3/uL (140-400) Prothrombin Time 13.1 SEC (11.7-14.0) Prothromb Time International Ratio 1.0 (0.8-1.1) Sodium Level 146 mmol/L (136-145) Potassium Level 4.3 mmol/L (3.5-5.1) Chloride Level 112 mmol/L (98-107) Carbon Dioxide Level 26 mmol/L (21-32) Anion Gap 8 (6-14) Blood Urea Nitrogen 19 mg/dL (8-26) Creatinine 1.2 mg/dL (0.7-1.3) Estimated GFR (Cockcroft-Gault) 73.1 Glucose Level 102 mg/dL (70-99) Calcium Level 8.6 mg/dL (8.5-10.1) Brief Hospital Course Mr. Sandoval is a 66 yo male admitted for planned CIVIL PREPAREDNESS COORDINATOR-D placement. He had a successful implantation of Biotronik biventricular ICD/CIVIL PREPAREDNESS COORDINATOR-D for primary prevention of sudden cardiac and cardiac resynchronization therapy in a p atient with severe ischemic cardiomyopathy, chronic systolic heart failure with EF 25% and prolonged QRS interval of 156 ms. Defibrillation thresholds were measured successfully at the time of implantation. Reinterrogation revealed normal function. No immediate complications. He did have quite some oozing potoperatively to incision with currently stable small hematoma. No further oozing, no tenderness and incision site is pink no redness with well approximated incision with steristrips. No chest pain or SOA. AOx3, mild upper expiratory wheeze otherwise clear to auscultation. Neurovascular status to LUE intact. Sling in place. Discharge Information Condition at Discharge: Stable Follow Up: Weeks (2) Scheduled Amitriptyline Hcl (Amitriptyline Hcl) 10 Mg Tablet, 10 MG PO DAILY, (Reported) Entered as Reported by: VICKY RANGEL on 12/25/20929 Last Taken: Unknown Dose on 04/14/21 Last Action: Continued on 04/15/211705 by Maria Luz Mora Atorvastatin Calcium (Atorvastatin Calcium) 40 Mg Tablet, 40 MG PO DAILY for FOR CHOLESTEROL, #30 Ref 0 (Reported) Entered as Reported by: VICKY RANGEL on 12/25/20929 Last Taken: Unknown Dose on 04/14/21 Last Action: Continued on 04/15/211705 by Maria Luz Mora Carvedilol (Carvedilol) 25 Mg Tablet, 25 MG PO BIDWMEALS for CARDIAC, (Reported) Entered as Reported by: VICKY RANGEL on 12/25/20929 Last Taken: Unknown Dose on 04/15/21 Last Action: Converted on 04/15/211705 by Maria Luz Mora Clopidogrel Bisulfate (Clopidogrel) 75 Mg Tablet, 75 MG PO DAILY for TO PREVENT BLOOD CLOTS, #30 Ref 0 (Reported) Entered as Reported by: VICKY RANGEL on 12/25/20929 Last Taken: Unknown Dose on 04/15/21 Last Action: Continued on 04/15/211705 by Maria Luz Mora Gabapentin (Gabapentin ) 300 Mg Capsule, 300 MG PO TID for NEUROGENIC PAIN, (Reported) Entered as Reported by: VICKY RANGEL on 12/25/20929 Last Taken: Unknown Dose on 04/15/21 Last Action: Continued on 04/15/211705 by Maria Luz Mora Hydroxyzine Hcl (Hydroxyzine Hcl) 25 Mg Tablet, 25 MG PO QID, (Reported) Entered as Reported by: VICKY RANGEL on 12/25/20929 Last Taken: Unknown Dose on 04/14/21 Last Action: Continued on 04/15/211705 by Maria Luz Mora Isosorbide Mononitrate (Isosorbide Mononitrate Er) 30 Mg Tab.er.24h, 30 MG PO DAILY, (Reported) Entered as Reported by: VICKY RANGEL on 12/25/20929 Last Taken: Unknown Dose on 04/15/21 Last Action: Continued on 04/15/211705 by Maria Luz Mora Losartan Potassium (Losartan Potassium) 100 Mg Tablet, 100 MG PO DAILY for HYPERTENSION, (Reported) Entered as Reported by: VICKY RANGEL on 12/25/20929 Last Taken: Unknown Dose on 04/14/21 Last Action: Converted on 04/15/211705 by Maria Luz Mora Potassium Chloride (Klor-Con) 20 Meq Packet, 20 MEQ PO DAILY, (Reported) Entered as Reported by: VICKY RANGEL on 12/25/20929 Last Taken: Unknown Dose on 04/14/21 Last Action: Converted on 04/15/211705 by Maria Luz Mora Spironolactone (Spironolactone) 25 Mg Tablet, 25 MG PO DAILY, (Reported) Entered as Reported by: VICKY RANGEL on 12/25/20929 Last Taken: Unknown Dose on 04/14/21 Last Action: Continued on 04/15/211705 by Maria Luz Mora Tamsulosin Hcl (Flomax) 0.4 Mg Cap.er.24h, 0.4 MG PO DAILY, (Reported) Entered as Reported by: VICKY RANGEL on 12/25/20929 Last Taken: Unknown Dose on 04/15/21 Last Action: Continued on 04/15/211705 by Maria Luz Mora Scheduled PRN Nitroglycerin (NITROGLYCERIN SubLingual) 0.4 Mg Tab.subl, 0.4 MG SL PRN Q5MIN PRN for CHEST PAIN, (Reported) Entered as Reported by: VICKY RANGEL on 12/25/20929 Last Taken: Unknown Dose on Unknown Date & Time Last Action: Continued on 04/15/211705 by Maria Luz Mora Tramadol Hcl (Tramadol Hcl) 50 Mg Tablet, 50 MG PO Q6HRS PRN for PAIN, (Reported) Entered as Reported by: VICKY RANGEL on 12/25/20929 Last Taken: Unknown Dose on 04/14/21 Last Action: Continued on 04/15/211705 by Maria Luz Mora Miscellaneous Medications Mv-Mn/Iron/Fa/Herbal Cmplx#190 (Vitamin D3 Complete Caplet) 1 Each Tablet, 1 EACH PO, (Reported) Entered as Reported by: VICKY RANGEL on 12/25/20929 Last Taken: Unknown Dose on 04/15/21 Last Action: Last Taken Edited on 04/15/21914 by KAYE ESCALONA Torsemide (Torsemide) 10 Mg Tablet, 10 MG PO, (Reported) Entered as Reported by: VICKY RANGEL on 12/25/20929 Last Taken: Unknown Dose on 04/14/21 Last Action: Last Taken Edited on 04/15/21914 by KAYE ESCALONA Patient Instructions Patient Instructions Must know & what to expect after device implant: 1. Your surgical dressing should be removed prior to discharge from the hospital, but allow the steri- strips to fall off naturally. 2. Activity restrictions: DO NOT raise arm above shoulder level, lift anything heavier than a gallon of milk, and no push or pull motions such as vacuuming/lawn mowing, no swinging motions (golf), etc for 4 weeks. 3. It is OK to use a cell phone or other electronic devices just be sure you do not store it in a breast pocket on the side where the device was placed. 4. Device will be interrogated prior to your discharge from the hospital and then every 3 months for defibrillators and every 6 months for pacemakers. You may be asked to have your device checked remotely from home as well, but this will depend on your particular physicians preference. 5. You may remove the arm immobilizer the day after device placement. Wear the arm immobilizer/splint at night (during sleep times) for 2 week to prevent unintended arm movement that can cause lead dislodgement. 6. Do not drive for one week as the task of driving may lead to unintended arm motion that may cause lead dislodgement. The seatbelt will also rub against the incision site & cause irritation. 7. It is our recommendation that you utilize Tylenol at home for pain control. You need to call our office if you are having uncontrollable pain at the incision site. 8. Keep your incision clean and dry. It is OK to shower. DO NOT submerge in bath, pool, or hot tub, until cleared by your doctor, as this could lead to increase risk of infection.. It is OK to use regular soap just do not scrub the incision site. Water spray from shower should not directly hit the incision. Be sure to blot dry not rub. 9. Inspect your incision daily. If you notice any increased redness, swelling, or drainage, or if you start running a fever, call the office immediately. The number is [phone]. 10. For women, if you need to protect against irritation from the bra straps, you can place a piece of gauze over the incision site for cushion. Please be sure to tape it loosely to allow air to the site & remove the gauze when you remove the bra. 11. Be sure to carry your device identification information card in your wallet/purse at all times. 12. It is OK to go through security at the airport with your device, but be sure to let the TSA know prior to proceeding as the security settings change depending on varying factors. Please do whatever is requested by security at that time. 13. Some of the newer devices may be MRI compatible but, currently, the use of these devices is not widespread, so you likely will not be able to have an MRI. Please clarify this with your physician. Special instructions for defibrillator patients: If your device recognizes a rhythm that requires treatment with a shock, you will most likely feel the shock. This is usually not a subtle feeling and it is uncomfortable. Please follow these steps if you receive a shock: Call the office if you receive one shock. Go to the emergency room if you receive two consecutive shocks- please have someone drive you & call 911 if nobody is available- DO NOT drive yourself. Call 911 if you receive more than 2 consecutive shocks. If at any time, you feel lightheaded or dizzy/faint, stop what you are doing & lie down immediately. If you are driving, get to the side of the road quickly, turn your car off & call 911 on your cell phone. DO NOT continue to drive as this may cause an accident that seriously injures yourself &/or others. Call the office at [phone] for any questions or concerns. Justicifation of Admission Dx: Justifications for Admission: Justification of Admission Dx: Yes ENDY WHITT MD 04/16/212: Discharge Summary Brief Hospital Course Brief Hospital Course Patient seen and examined. Agree with IC DESIGNER STANDARD CELLS's assessment and plan. Severe ischemic CMP with prolonged QRS interval underwent successful BiVICD/CRTD implantation yesterday with DF threshold evaluation. Incision looks good, no pocket hematoma, CXR without any pneumothorax and device check showed normal function. OK for DC today and follow up for wound check in 2 weeks. Discharge Information Scheduled Amitriptyline Hcl (Amitriptyline Hcl) 10 Mg Tablet, 10 MG PO DAILY, (Reported) Entered as Reported by: VICYK RANGEL on 12/25/20929 Last Taken: Unknown Dose on 04/14/21 Last Action: Continued on 04/15/211705 by Maria Luz Mora Atorvastatin Calcium (Atorvastatin Calcium) 40 Mg Tablet, 40 MG PO DAILY for FOR CHOLESTEROL, #30 Ref 0 (Reported) Entered as Reported by: VICKY RANGEL on 12/25/20929 Last Taken: Unknown Dose on 04/14/21 Last Action: Continued on 04/15/211705 by Maria Luz Mora Carvedilol (Carvedilol) 25 Mg Tablet, 25 MG PO BIDWMEALS for CARDIAC, (Reported) Entered as Reported by: VICKY RANGEL on 12/25/20929 Last Taken: Unknown Dose on 04/15/21 Last Action: Converted on 04/15/211705 by Maria Luz Mora Clopidogrel Bisulfate (Clopidogrel) 75 Mg Tablet, 75 MG PO DAILY for TO PREVENT BLOOD CLOTS, #30 Ref 0 (Reported) Entered as Reported by: VICKY RANGEL on 12/25/20929 Last Taken: Unknown Dose on 04/15/21 Last Action: Continued on 04/15/211705 by Maria Luz Mora Gabapentin (Gabapentin ) 300 Mg Capsule, 300 MG PO TID for NEUROGENIC PAIN, (Reported) Entered as Reported by: VICKY RANGEL on 12/25/20929 Last Taken: Unknown Dose on 04/15/21 Last Action: Continued on 04/15/211705 by Maria Luz Mora Hydroxyzine Hcl (Hydroxyzine Hcl) 25 Mg Tablet, 25 MG PO QID, (Reported) Entered as Reported by: VICKY RANGEL on 12/25/20929 Last Taken: Unknown Dose on 04/14/21 Last Action: Continued on 04/15/211705 by Maria Luz Mora Isosorbide Mononitrate (Isosorbide Mononitrate Er) 30 Mg Tab.er.24h, 30 MG PO DAILY, (Reported) Entered as Reported by: VICKY RANGEL on 12/25/20929 Last Taken: Unknown Dose on 04/15/21 Last Action: Continued on 04/15/211705 by Maria Luz Mora Losartan Potassium (Losartan Potassium) 100 Mg Tablet, 100 MG PO DAILY for HYPERTENSION, (Reported) Entered as Reported by: VICKY RANGEL on 12/25/20929 Last Taken: Unknown Dose on 04/14/21 Last Action: Converted on 04/15/211705 by Maria Luz Mora Potassium Chloride (Klor-Con) 20 Meq Packet, 20 MEQ PO DAILY, (Reported) Entered as Reported by: VICKY RANGEL on 12/25/20929 Last Taken: Unknown Dose on 04/14/21 Last Action: Converted on 04/15/211705 by Maria Luz Mora Spironolactone (Spironolactone) 25 Mg Tablet, 25 MG PO DAILY, (Reported) Entered as Reported by: VICKY RANGEL on 12/25/20929 Last Taken: Unknown Dose on 04/14/21 Last Action: Continued on 04/15/211705 by Maria Luz Mora Tamsulosin Hcl (Flomax) 0.4 Mg Cap.er.24h, 0.4 MG PO DAILY, (Reported) Entered as Reported by: VICKY RANGEL on 12/25/20929 Last Taken: Unknown Dose on 04/15/21 Last Action: Continued on 04/15/211705 by Maria Luz Mora Scheduled PRN Nitroglycerin (NITROGLYCERIN SubLingual) 0.4 Mg Tab.subl, 0.4 MG SL PRN Q5MIN PRN for CHEST PAIN, (Reported) Entered as Reported by: VICKY RANGEL on 12/25/20929 Last Taken: Unknown Dose on Unknown Date & Time Last Action: Continued on 04/15/211705 by Mraia Luz Mora Tramadol Hcl (Tramadol Hcl) 50 Mg Tablet, 50 MG PO Q6HRS PRN for PAIN, (Reported) Entered as Reported by: VICKY RANGEL on 12/25/20929 Last Taken: Unknown Dose on 04/14/21 Last Action: Continued on 04/15/211705 by Maria Luz Mora Miscellaneous Medications Mv-Mn/Iron/Fa/Herbal Cmplx#190 (Vitamin D3 Complete Caplet) 1 Each Tablet, 1 EACH PO, (Reported) Entered as Reported by: VICKY RANGEL on 12/25/20929 Last Taken: Unknown Dose on 04/15/21 Last Action: Last Taken Edited on 04/15/21914 by KAYE ESCALONA Torsemide (Torsemide) 10 Mg Tablet, 10 MG PO, (Reported) Entered as Reported by: VICKY RANGEL on 12/25/20929 Last Taken: Unknown Dose on 04/14/21 Last Action: Last Taken Edited on 04/15/21914 by ZOHRA JACOBO APRN Apr 16, 2021 12:35 ENDY WHITT MD Apr 16, 2021 21:42
--- NOTE | 2021-04-16 14:18 | NUR ---
SS following for discharge planning. SS reviewed pt chart and discussed with pt RN. Pt is from home with spouse and is currently on room air. Pt admitted for pacemaker. Discharge order on the chart for home with self care.
--- NOTE | 2021-04-16 14:45 | NUR ---
PT WAS ABLE TO AMBULATE WITHOUT ANY ASSISTIVE DEVICES OR OXYGEN WITH STANDBY ASSIST FOR 240 FEET.
--- NOTE | 2021-04-16 15:17 | NUR ---
Discharge Note: VICENTE MAGDALENO A2 [facility] Discharge instructions and discharge home medications reviewed with Patient and a copy given. All questions have been answered and understanding verbalized. The following instructions and handouts were given: CARDIOMYOPATHY, PACEMAKER PLACEMENT AND CARE Discontinued lines and drains: Peripheral IV intact. Patient discharged to Home or Self Care with Spouse via Wheelchair
[2021-04-17] MEDS ORDERED: PROPOFOL 10 MG/ML (20ML) VIAL. IV ONE (08:17)
[2021-04-17] MEDS ORDERED: LIDOCAINE 2% PF 5 ML VIAL. ONE (08:17)
== END 2021-04-16 16:15 | disposition home or self-care (01) ==
LOC: SURG 08:36 → EDBD 10:00 → 2 SOUTH 15:15
PROVIDERS: ADMIT Internal Medicine Cardiovascular Disease; ATTEND Internal Medicine Cardiovascular Disease
DX: I42.8 Other cardiomyopathies (principal); I11.0 Hypertensive heart disease with heart failure; I50.22 Chronic systolic (congestive) heart failure; I25.5 Ischemic cardiomyopathy; I25.10 Atherosclerotic heart disease of native coronary artery without angina pectoris; Z79.02 Long term (current) use of antithrombotics/antiplatelets; Z79.899 Other long term (current) drug therapy
CPT/HCPCS: 33225; 33249; 36415; 71045; 71046; 80048; 85027; 85610; 93005; 93641; 96365; 96366; C1769; C1882; G0378; G0379; J0690; J2250; J3010; J3490; Q9967; J2704

== ENCOUNTER 2021-05-01 10:14 | Emergency (ER) | payer MEDICARE ==
[~2021-05-01] VITALS: Ht 170.2 cm; Wt 132.7 kg
[~2021-05-01 10:14] MED LIST changes: -HYDROmorphone 2 MG/ML VIAL IVP PRN; -IV RINGERS,LACTATED 1000ML 1,000 ML IV SCH; -MORPHINE SULFATE 2 MG/ML VIAL. IVP PRN; -PROCHLORPERAZINE 10 MG/2 ML VIAL. IVP PRN; -fentaNYL PF VIAL 100 MCG/2 ML VIAL IVP PRN
[2021-05-01 10:16] VITALS: BP_DIAS 68
--- NOTE | 2021-05-01 10:56 | ED.ADGEN ---
Past Medical History Past Medical History: Asthma, CHF, Diabetes-Type II, Hypertension, MD Additional Past Medical Histor: obesity Past Surgical History: Hip Replacement, Knee Replacement Smoking Status: Former Smoker Alcohol Use: None Drug Use: None General Adult HPI: HPI: Patient is a 66 year old AA male who presents emergency department with reports of bleeding from his defibrillator surgical site. Patient reports Dr. Leroy placed a defibrillator on April 152020. He states since 0400 this morning the site has been oozing blood. Patient denies any use of anticoagulants, he does take aspirin daily. He denies any known injury, chest pain, palpitations, shortness of breath, dizziness, headache, nausea, diarrhea, body aches, or fatigue. He currently denies any pain. Review of Systems: Review of Systems: Complete ROS is negative unless otherwise noted in HPI. Allergies: Allergies: Allergies Coded Allergies Type Severity Reaction Last Updated Verified No Known Drug Allergies 01/04/19 No Physical Exam: PE: See Above Constitutional: Well developed, well nourished, no acute distress, non-toxic appearance, obese. [] HENT: Normocephalic, atraumatic, bilateral external ears normal, nose normal. [] Eyes: PERRLA, EOMI, conjunctiva normal, no discharge. [] Neck: Normal range of motion, no stridor. [] Cardiovascular:Heart rate regular rhythm, no murmur Lungs & Thorax: Respirations even and unlabored, no retractions, no respiratory distress, lungs CTA Skin: Warm, dry, no erythema, no rash; healing surgical site to the left upper chest, there is a pinpoint area that is oozing blood from the recent surgical site, no bruising or swelling to the surgical site. [] Extremities: No cyanosis, ROM intact, no edema. [] Neurologic: Alert and oriented X 3, normal motor, normal sensory, no focal deficits noted. [] Psychologic: Affect normal, judgement normal, mood normal. [] Current Patient Data: Vital Signs: Vital Signs Date Time Temp Pulse Resp B/P (MAP) Pulse Ox O2 Delivery O2 Flow Rate FiO2 05/01/21 11:26 78 22 115/ 97 Room Air 05/01/21 10:16 98.3 98.3 EKG: EKG: [] Heart Score: C/O Chest Pain: No Radiology/Procedures: Radiology/Procedures: [] Course & Med Decision Making: Course & Med Decision Making Pertinent Labs and Imaging studies reviewed. (See chart for details) 1050- I spoke with Dr. Leroy about the patient. He will have a industrial laborer nurse come to apply a pressure dressing over the surgical site. 1100-Taproom Attendant nurse at the bedside applied pressure dressing to the site, Will discharge patient home and have him follow-up with Dr. Leroy Patient verbalized an understanding of home care, medications, follow-up, and return to ED instructions and was in agreement with the plan of care. [] Dragon Disclaimer: Dragon Disclaimer: This electronic medical record was generated, in whole or in part, using a voice recognition dictation system. Departure Departure Impression: Primary Impression: Postoperative bleeding from incision Additional Impression: AICD (automatic cardioverter/defibrillator) present Disposition: HOME / SELF CARE / HOMELESS Condition: STABLE Referrals: ENDY LEROY MD Patient Instructions: Postsurgical Bleeding Additional Instructions: Leave the pressure dressing in place until follow-up. Follow up with Dr. Leroy in 1-2 days, call today to schedule an appointment. Return to the ER if symptoms worsen or fever develops. Attending Signature Attending Signature I have reviewed the PA/CONSTRUCTION JOB COST ESTIMATOR's note and plan of care. I was available for consultation as needed during the patient's visit in the emergency department. I agree with the clinical impression, plan, and disposition. Problem Qualifiers PARRISH JOYNER APRN May 01, 2021 10:56 CHARLY SYLVESTER DO May 04, 2021 12:56
[2021-05-01 11:26] VITALS: BP_SYST 115
== END 2021-05-01 11:31 | disposition home or self-care (01) ==
LOC: ER 10:14
DX: T82.837A Hemorrhage due to cardiac prosthetic devices, implants and grafts, initial encounter (principal); J45.909 Unspecified asthma, uncomplicated; E11.9 Type 2 diabetes mellitus without complications; I11.0 Hypertensive heart disease with heart failure; I50.9 Heart failure, unspecified; I25.2 Old myocardial infarction; E66.9 Obesity, unspecified; Z95.810 Presence of automatic (implantable) cardiac defibrillator; Z68.42 Body mass index [BMI] 45.0-49.9, adult
CPT/HCPCS: 99281

== ENCOUNTER → 2021-06-30 | Outpatient (CLI) | payer MEDICARE ==
--- NOTE | 2021-06-30 11:49 | RAD ---
EXAM: Chest, 2 views. HISTORY: Chest pain. COMPARISON: 04/16/2021 FINDINGS: 2 views of the chest are obtained. There is diffuse central predominant interstitial infilt rate. There is no consolidation, pleural effusion or pneumothorax. There is stable cardiomegaly and a cardiac pacemaker defibrillator. IMPRESSION: Diffuse central predominant interstitial infiltrate. Cardiomegaly. Electronically signed by: Luzma Mcghee MD (06/30/2021 11:46 AM) [id number]
== END ==
LOC: LAB 10:48
PROVIDERS: ATTEND Internal Medicine Cardiovascular Disease
DX: I51.7 Cardiomegaly (principal); R91.8 Other nonspecific abnormal finding of lung field
CPT/HCPCS: 71046

== ENCOUNTER 2021-10-12 12:04 | Emergency (ER) | payer MEDICARE ==
[~2021-10-12] VITALS: Ht 167.6 cm; Wt 128.0 kg
--- NOTE | 2021-10-12 12:38 | ED.ADGEN ---
Past Medical History Past Medical History: Asthma, CHF, Diabetes-Type II, Hypertension, SD Additional Past Medical Histor: obesity Past Surgical History: Hip Replacement, Knee Replacement, Pacemaker, Other Additional Past Surgical Histo: DEFIBRILLATOR Smoking Status: Former Smoker Alcohol Use: None Drug Use: None General Adult EDM: Chief Complaint: SHORTNESS OF BREATH HPI: HPI: Patient is a 66 year old male coming in for cough and shortness of breath. Patient states the shortness of breath is worse with exertion and trying to lay flat. Patient states last night he tried to lay down for bed but felt his heart racing to go away in the recliner. Patient is a history of CHF and hypertension, has history of SD. Patient states takes aspirin no other blood thinners. Patient has had recent stressor of losing his to pneumonia. He is concerned because he has had a cough productive of reddish-brown phlegm. Denies any fevers or GI complaints. Has noticed increasing lower extremity edema Review of Systems: Review of Systems: All other systems within normal limits except for as noted in the HPI Current Medications: Current Medications Medications (Trade) Dose Ordered Sig/Bela Start Time Stop Time Status Last Admin Dose Admin Furosemide (Lasix) 20 mg 1X ONCE 10/12/21 14:45 10/12/21 14:46 DC Allergies: Allergies: Allergies Coded Allergies Type Severity Reaction Last Updated Verified No Known Drug Allergies 01/04/19 No Physical Exam: PE: Constitutional: Well developed, well nourished, no acute distress, non-toxic appearance. [] HENT: Normocephalic, atraumatic, bilateral external ears normal, nose normal. [] Eyes: PERRLA, conjunctiva normal, no discharge. [] Neck: No rigidity, supple, no stridor. [] Cardiovascular: Regular rate and rhythm, brisk cap refill [] Lungs & Thorax: Non labored symmetric respirations, no tachypnea or respiratory distress [] Abdomen: Soft, nondistended. Skin: Warm, dry, no erythema, no rash. [] Back: Unremarkable Extremities: No deformities, range of motion grossly intact, bilateral pitting lower extremity edema [] Neurologic: Alert and oriented X 3, no focal deficits noted. [] Psychologic: Affect normal, judgement normal, mood normal. [] Current Patient Data: Labs: Laboratory Tests Test 12/5/21 12:50 White Blood Count 7.4 x10^3/uL (4.0-11.0) Red Blood Count 4.57 x10^6/uL (4.30-5.70) Hemoglobin 13.8 g/dL (13.0-17.5) Hematocrit 42.1 % (39.0-53.0) Mean Corpuscular Volume 92 fL (79-100) Mean Corpuscular Hemoglobin 30 pg (25-35) Mean Corpuscular Hemoglobin Concent 33 g/dL (31-37) Red Cell Distribution Width 14.7 % (11.5-14.5) H Platelet Count 183 x10^3/uL (140-400) Neutrophils (%) (Auto) 68 % (31-73) Lymphocytes (%) (Auto) 18 % (24-48) L Monocytes (%) (Auto) 13 % (0-9) H Eosinophils (%) (Auto) 0 % (0-3) Basophils (%) (Auto) 0 % (0-3) Neutrophils # (Auto) 5.1 x10^3/uL (1.8-7.7) Lymphocytes # (Auto) 1.3 x10^3/uL (1.0-4.8) Monocytes # (Auto) 1.0 x10^3/uL (0.0-1.1) Eosinophils # (Auto) 0.0 x10^3/uL (0.0-0.7) Basophils # (Auto) 0.0 x10^3/uL (0.0-0.2) Sodium Level 142 mmol/L (136-145) Potassium Level 4.1 mmol/L (3.5-5.1) Chloride Level 105 mmol/L (98-107) Carbon Dioxide Level 27 mmol/L (21-32) Anion Gap 10 (6-14) Blood Urea Nitrogen 20 mg/dL (8-26) Creatinine 1.3 mg/dL (0.7-1.3) Estimated GFR (Cockcroft-Gault) 66.6 BUN/Creatinine Ratio 15 (6-20) Glucose Level 110 mg/dL (70-99) H Lactic Acid Level 1.1 mmol/L (0.4-2.0) Calcium Level 8.8 mg/dL (8.5-10.1) Phosphorus Level 3.3 mg/dL (2.6-4.7) Magnesium Level 2.1 mg/dL (1.8-2.4) Total Bilirubin 0.6 mg/dL (0.2-1.0) Aspartate Amino Transferase (AST) 26 U/L (15-37) Alanine Aminotransferase (ALT) 31 U/L (16-63) Alkaline Phosphatase 111 U/L (46-116) Troponin I High Sensitivity 46 ng/L (4-75) TI-Nyu-E-Type Natriuretic Peptide 2797 pg/mL (0-124) H Total Protein 7.4 g/dL (6.4-8.2) Albumin 3.3 g/dL (3.4-5.0) L Albumin/Globulin Ratio 0.8 (1.0-1.7) L SARS-CoV-2 Antigen (Rapid) Negative (NEGATIVE) Laboratory Tests 10/12/21 12:50 Laboratory Tests 10/12/21 12:50 Vital Signs: Vital Signs Date Time Temp Pulse Resp B/P (MAP) Pulse Ox O2 Delivery O2 Flow Rate FiO2 10/12/21 12:18 98.8 86 24 165/109 (127) 94 Room Air 98.8 EKG: EKG: Paced rhythm with PVCs, heart rate 85 beats minute, left axis deviation, [] Heart Score: C/O Chest Pain: No HEART Score for Chest Pain: HEART Score for Chest Pain Response (Comments) Value History Slighlty/Non-Suspicious 0 Age > 65 2 Risk Factors >3 Risk Factors or Hx CAD 2 Troponin < Normal Limit 0 Total 4 Risk Factors: Risk Factors: DM, Current or recent (<one month) smoker, HTN, HLP, family history of CAD, obesity. Risk Scores: Score 0 - 3: 2.5% MACE over next 6 weeks - Discharge Home Score 4 - 6: 20.3% MACE over next 6 weeks - Admit for Clinical Observation Score 7 - 10: 72.7% MACE over next 6 weeks - Early Invasive Strategies Radiology/Procedures: Radiology/Procedures: [facility] [address] [place] [address] IMAGING REPORT Signed PATIENT: VICENTE MAGDALENO AACCOUNT: [id number] : 1955 LOCATION: ER AGE: 66 SEX: M EXAM STATUS: REG ER ORD. PHYSICIAN: STEFF OLIVARES MD REASON: dyspnea PROCEDURE: CHEST AP ONLY PROCEDURE: XR CHEST 1V.10/12/2021 1:04 PM REASON FOR STUDY: Reason: dyspnea / Spl. Instructions: / History: . COMPARISON: Study of 06/30/2021. FINDINGS: Pacemaker device remains in place. There is still cardiomegaly and s ome vascular congestion. There may be increased infiltrate toward the right lung base. No large effusion is seen. IMPRESSION: Similar findings to the prior exam with possible component of CHF. There may be developing infiltrate toward the right base as well. Electronically signed by: Blanca Iraheta Jr., MD (10/12/2021 1:05 PM) [facility] DICTATED and SIGNED BY: BLANCA IRAHETA Jr, MD DATE: 10/12/21 [id number] [] Course & Med Decision Making: Course & Med Decision Making Pertinent Labs and Imaging studies reviewed. (See chart for details) Discussed findings of CHF and right lower lobe pneumonia with patient. Patient was initially placed on O2 by nurse because he was dropping to low 90s when he tried to lay back. Patient does not normally wear oxygen at home. Has a history of CHF (per chart review has an EF of 25 to 30%) has had increased edema. Takes 5 mg torsemide at home. Patient taken off oxygen to walk to the emergency department with desaturation of oxygen levels to 80s. Plan to admit patient but patient is refusing and wants to go home. He states he has a dog but nobody else is able to take care of. Discussed risks of hypoxia and deterioration of his condition, strongly encouraged patient to stay. Patient states he will return if feels worse and will call his primary care provider or bindery helper first thing in the morning to be reevaluated. Patient given first dose antibiotics and Lasix in emergency department with instruction to take a double dose of his torsemide in the morning. [] Dragon Disclaimer: Dragon Disclaimer: This electronic medical record was generated, in whole or in part, using a voice recognition dictation system. Departure Departure Impression: Primary Impression: Pneumonia Additional Impression: CHF (congestive heart failure) Disposition: HOME / SELF CARE / HOMELESS Condition: GUARDED Referrals: EMANUEL HO MD (PCP) Patient Instructions: Pneumonia, Adult Scripts Amoxicillin/Potassium Clav (AUGMENTIN 875-125 TABLET) 1 Each Tablet 1 TAB PO Q12HR for antibiotic for 5 Days, #10 TAB Prov: STEFF OLIVARES MD 10/12/21 Azithromycin (ZITHROMAX) 250 Mg Tablet 1 PKG PO UD for antibiotic for 5 Days, #6 TAB Prov: STEFF OLIVARES MD 10/12/21 Problem Qualifiers STEFF OLIVARES MD Oct 12, 2021 12:38
[2021-10-12 13:07] LABS: BASO % 0 % (0-3); EOS % 0 % (0-3); HEMATOCRIT 42.1 % (39.0-53.0); HEMOGLOBIN 13.8 g/dL (13.0-17.5); LYMPH # 1.3 x10^3/uL (1.0-4.8); LYMPH % 18 % (24-48); MEAN CORPUSCULAR HEMOGLOBIN 30 pg (25-35); MEAN CORPUSCULAR HGB CONC 33 g/dL (31-37); MEAN CORPUSCULAR VOLUME 92 fL (79-100); MONO % 13 % (0-9); NEUT # 5.1 x10^3/uL (1.8-7.7); NEUT % 68 % (31-73); PLATELET COUNT 183 x10^3/uL (140-400); RED BLOOD COUNT 4.57 x10^6/uL (4.30-5.70); RED CELL DISTRIBUTION WIDTH 14.7 % (11.5-14.5); WHITE BLOOD COUNT 7.4 x10^3/uL (4.0-11.0)
--- NOTE | 2021-10-12 13:07 | RAD ---
PROCEDURE: XR CHEST 1V.10/12/2021 1:04 PM REASON FOR STUDY: Reason: dyspnea / Spl. Instructions: / History: . COMPARISON: Study of 06/30/2021. FINDINGS: Pacemaker device remains in place. There is still cardiomegaly and some vascular congestion . There may be increased infiltrate toward the right lung base. No large effusion is seen. IMPRESSION: Similar findings to the prior exam with possible component of CHF. There may be developin g infiltrate toward the right base as well. Electronically signed by: Trevor Iraheta Jr., MD (10/12/2021 1:05 PM) [facility]
[2021-10-12 13:17] LABS: CALCIUM 8.8 mg/dL (8.5-10.1); CREATININE 1.3 mg/dL (0.7-1.3); GFR 66.6; POTASSIUM 4.1 mmol/L (3.5-5.1)
[2021-10-12 13:23] LABS: ALBUMIN 3.3 g/dL (3.4-5.0); ALBUMIN/GLOBULIN RATIO 0.8 (1.0-1.7); MAGNESIUM 2.1 mg/dL (1.8-2.4); PHOSPHORUS 3.3 mg/dL (2.6-4.7); TOTAL BILIRUBIN 0.6 mg/dL (0.2-1.0); TOTAL PROTEIN 7.4 g/dL (6.4-8.2)
[2021-10-12] MEDS ORDERED: FUROSEMIDE 20 MG/2 ML VIAL. IVP ONE (14:45)
[2021-10-12 15:19] VITALS: BP 163/79
[2021-10-12] MEDS ORDERED: AZIT250T PO (15:21)
[2021-10-12] MEDS ORDERED: AMOX1TAB61 PO (15:21)
--- NOTE | 2021-10-12 16:32 | EKG ---
[facility] [address] [place] [address] Test Date: 2021-10-12 Test Time: 12:18:21 Pat Name: VICENTE MAGDALENO Department: Room: Gender: M Php Architect: : 1955 Requested By: STEFF OLIVARES Order Number: [id number] Reading MD: Dmitry Mcleod MD Measurements Intervals [place] Rate: 95 P: 40 IL: 172 QRS: -110 QRSD: 144 T: 54 QT: 402 QTc: 509 Interpretive Statements SR CONSIDER BI-V PACING Electronically Signed On 10-12-2021 20:21:16 IT AUDIT MANAGER by Dmitry Mcleod MD
--- NOTE | 2021-10-13 16:24 | NUR ---
IP: Informed pt of negative covid test. Pt verbalized understanding.
== END 2021-10-12 15:15 | disposition admitted as inpatient to this hospital (09) ==
LOC: ER 12:04
DX: J18.9 Pneumonia, unspecified organism (principal); I11.0 Hypertensive heart disease with heart failure; I50.9 Heart failure, unspecified; I25.2 Old myocardial infarction; J45.909 Unspecified asthma, uncomplicated; Z87.891 Personal history of nicotine dependence; Z95.0 Presence of cardiac pacemaker
CPT/HCPCS: 36415; 71045; 80053; 83605; 83735; 83880; 84100; 84484; 85025; 87426; 93005; 96374; 99285; J1940; U0003; U0005